=== PATIENT | male | born 1980 | race Caucasian/White ===

== ENCOUNTER 2024-01-03 20:45 | Emergency (ER) | payer BC ==
[~2024-01-03] VITALS: Ht 177.8 cm; Wt 93.4 kg
[2024-01-03 20:52] VITALS: BP 142/86; PULSE 98; RESP 18; TEMP 98; O2SAT 98
[2024-01-03 21:42] LABS: BILIRUBIN,URINE NEGATIVE (NEGATIVE); BLOOD, URINE NEGATIVE (NEGATIVE); COLOR,URINE YELLOW (YELLOW); LEUKOCYTE ESTERASE ,URINE TRACE (NEGATIVE); NITRITE, URINE NEGATIVE (NEGATIVE); PROTEIN,URINE NEGATIVE (NEGATIVE); UGLUCOSE NEGATIVE (NEGATIVE); UROBILINOGEN,URINE 0.2 EU/dL (0.2 - 1)
[2024-01-03 21:43] LABS: APPEARANCE,URINE SLIGHTLY HAZY (CLEAR)
[2024-01-03 21:45] LABS: BACTERIA,URINE 1+ /HPF (None Seen); MUCUS,URINE None Seen /LPF (None Seen); RBC,URINE 0 /HPF (0-5); SQUAMOUS EPITHELIAL CELL,UR 0-3 (FEW) /LPF (0-3 (FEW)); WBC,URINE 0-5 /HPF (0-5)
[2024-01-03 21:56] VITALS: BP 140/78; PULSE 84; RESP 21; O2SAT 97
[2024-01-03] MEDS ORDERED: CEFP200T20 PO (22:32)
== END 2024-01-03 22:48 | disposition home or self-care (01) ==
LOC: MED 20:45
DX: N39.0 Urinary tract infection, site not specified (principal); R03.0 Elevated blood-pressure reading, without diagnosis of hypertension; Z79.899 Other long term (current) drug therapy
CPT/HCPCS: 81001; 87086; 99284